=== PATIENT | female | born 1995 | race Caucasian/White ===

== ENCOUNTER 2020-08-25 13:36 | Emergency (ER) | payer OTHER ==
--- NOTE | 2020-08-25 13:48 | ER Document Report ---
ED Medical Screen (RME) - General Stated Complaint: VAGINAL BLEEDING Time Seen by Provider: 08/25/20 13:44 Information source: Patient Notes: Patient presents 8 weeks G2, P0. Patient reports lower pelvic cramping with vaginal bleeding that started today. Patient states bleeding is heavier than a menstrual cycle. I have greeted and performed a rapid initial assessment of this patient. A comprehensive ED assessment and evaluation of the patient, analysis of test results and completion of the medical decision making process will be conducted by additional ED providers. - Related Data Allergies/Adverse Reactions: Penicillins Allergy (Verified 08/25/20 13:44) Physical Exam - Vital signs Vitals: Temp Pulse Resp BP Pulse Ox 98.1 F 88 16 119/60 100 08/25/20 13:42 08/25/20 13:42 08/25/20 13:42 08/25/20 13:42 08/25/20 13:42 - Abdominal Tenderness: Tender - Lower pelvic Course - Vital Signs Vital signs: Temp Pulse Resp BP Pulse Ox 98.1 F 88 16 119/60 100 08/25/20 13:42 08/25/20 13:42 08/25/20 13:42 08/25/20 13:42 08/25/20 13:42
--- NOTE | 2020-08-25 14:29 | ER Document Report ---
ED General - General Chief Complaint: OB Problem (<20wks) Stated Complaint: VAGINAL BLEEDING Time Seen by Provider: 08/25/20 13:44 Primary Care Provider: JOVANY ROACH MD [ACTIVE STAFF] - Follow up as needed RAYMOND CLOUD MD [ACTIVE PROVISIONAL STAFF] - Follow up tomorrow (follow up in 48 hours for repeat hcg and ultrasound) - HPI Notes: 25-year-old female LMP 07/03/2020 28 weeks presents the emergency room today for lower pelvic cramping and vaginal bleeding that started today, states she is going through 1 pad an hour. Patient does not have an NO[employer]LE [employer], denies any chest pain shortness of breath. Denies any fevers or chills. Denies any trauma. Patient is unsure of her blood type. Reports her last ended in a miscarriage. Denies any nausea vomiting diarrhea, abdominal pain. Denies any rashes. Denies any Covid exposure around any Covid positive patients in the last 14 days. - Related Data Allergies/Adverse Reactions: Penicillins Allergy (Verified 08/25/20 13:44) Home Medications: nausea Past Medical History - General Information source: Patient - Social History Smoking Status: Never Smoker Chew tobacco use (# tins/day): No Frequency of alcohol use: Occasional Drug Abuse: None Family History: Reviewed & Not Pertinent Patient has homicidal ideation: No Review of Systems - Review of Systems Constitutional: No symptoms reported EENT: No symptoms reported Cardiovascular: No symptoms reported Respiratory: No symptoms reported Gastrointestinal: No symptoms reported Genitourinary: No symptoms reported Female Genitourinary: See HPI Musculoskeletal: No symptoms reported Skin: No symptoms reported Hematologic/Lymphatic: No symptoms reported Neurological/Psychological: No symptoms reported Physical Exam - Vital signs Vitals: Temp Pulse Resp BP Pulse Ox 98.1 F 88 16 119/60 100 08/25/20 13:42 08/25/20 13:42 08/25/20 13:42 08/25/20 13:42 08/25/20 13:42 - Notes Notes: MEDICATIONS: I agree with the patient medications as charted by the RN. ALLERGIES: I agree with the allergies as charted by the RN. PAST MEDICAL HISTORY/PAST SURGICAL HISTORY: Reviewed and agree as charted by RN. SOCIAL HISTORY: Reviewed and agree as charted by RN. FAMILY HISTORY: No significant familial comorbid conditions directly related to patient complaint EXAM: Reviewed vital signs as charted by RN. PHYSICAL EXAMINATION: GENERAL: Well-appearing, well-nourished and in no acute distress. HEAD: Atraumatic, normocephalic. EYES: Pupils equal round and reactive to light, extraocular movements intact, conjunctiva are normal. ENT: Nares patent, oropharynx clear without exudates. Moist mucous membranes. NECK: Normal range of motion, supple without lymphadenopathy LUNGS: Breath sounds clear to auscultation bilaterally and equal. No wheezes rales or rhonchi. HEART: Regular rate and rhythm without murmurs ABDOMEN: Soft, nontender, nondistended abdomen. No guarding, no rebound. No masses appreciated. Female : External genitalia without erythema, exudate or discharge. Vaginal vault is without discharge. Cervix is of normal color without lesion. Uterus is noted to be of normal size and nontender. No cervical motion tenderness is seen. No masses are palpated. Scant blood in the vaginal vault without clots, os closed, no adnexal tenderness or mass Musculoskeletal: Normal range of motion, no pitting or edema. No cyanosis. NEUROLOGICAL: Cranial nerves grossly intact. Normal speech, normal gait. Normal sensory, motor exams PSYCH: Normal mood, normal affect. SKIN: Warm, Dry, normal turgor, no rashes or lesions noted. Dictation was performed using [employer] voice recognition software Course - Re-evaluation Re-evalutation: 08/25/20 15:37 Afebrile vital stable no distress. Nurses notes reviewed. Patient is A-, she will require RhoGam. concern room hCG quantitative is at 63,[phone]. Obstetric ultrasound a single living intrauterine gestation with an estimated gestational age of 7 weeks 4 days which is consistent with the menstrual dating. Small subchorionic hemorrhage. Consulted with Dr. Raymond Haque, she has been on active delivery and will call me back at [phone], she did call back at [phone], she did advis ed to do a repeat hCG in 48 hours as well as ultrasound which could be done her office or in the emergency room. Advised pelvic rest, if more than 2 pad saturated in an hour to return to the emergency room after performing a Medical Screening Examination, I estimate there is LOW risk for ACUTE APPENDICITIS, BOWEL OBSTRUCTION, ACUTE CHOLECYSTITIS, PERFORATED DIVERTICULITIS, INCARCERATED HERNIA, PANCREATITIS, PELVIC INFLAMMATORY DISEASE, PERFORATED ULCER, ECTOPIC , or TUBO-OVARIAN ABSCESS, thus I consider the discharge disposition reasonable. Also, there is no evidence or peritonitis, sepsis, or toxicity. I have reevaluated this patient multiple times and no significant life threatening changes are noted. The patient and I have discussed the diagnosis and risks, and we agree with discharging home with close follow-up with the understanding that symptoms and presentations can change. We also discussed returning to the Emergency Department immediately if new or worsening symptoms occur. We have discussed the symptoms which are most concerning (e.g., bloody stool, fever, changing or worsening pain, vomiting) that necessitate immediate return. - Vital Signs Vital signs: Temp Pulse Resp BP Pulse Ox 98.1 F 88 16 119/60 100 08/25/20 13:44 08/25/20 13:42 08/25/20 13:42 08/25/20 13:42 08/25/20 13:42 - Laboratory Result Diagrams: 08/25/20 14:08 Laboratory results interpreted by me: 08/25/20 08/25/20 14:08 14:08 Beta HCG, Quant 13524.00 H Urine Blood MODERATE H Discharge - Discharge Clinical Impression: Vaginal bleeding affecting early Condition: Stable Disposition: HOME, SELF-CARE Instructions: Bleeding During Early ([facility]), Vaginal Bleeding ([facility]) Additional Instructions: You need to return to the ED or the women's health clinic in 48 hours for a recheck of your hormone level. The ultrasound is unable to see anyt ana at this time because you are too early in your . Please return if you develop severe abdominal pain, bleeding that goes through more than 2 pads for more than 2 hours, pass out, or have any other symptoms that are concerning to you. Please follow-up closely with your OBGYN regarding todays visit. Return immediately for any new or worsening symptoms. Follow up with primary care provider, call tomorrow to make followup appointment. Referrals: JOVANY ROACH MD [ACTIVE STAFF] - Follow up as needed RAYMOND LCOUD MD [ACTIVE PROVISIONAL STAFF] - Follow up tomorrow (follow up in 48 hours for repeat hcg and ultrasound)
[2020-08-25 14:52] LABS: APPEARANCE,URINE CLEAR; BILIRUBIN,URINE NEGATIVE (NEGATIVE); COLOR,URINE YELLOW; GLUCOSE, URINE NEGATIVE (NEGATIVE); KETONES,URINE NEGATIVE (NEGATIVE); LEUKOCYTE ESTERASE,URINE NEGATIVE (NEGATIVE); NITRITE,URINE NEGATIVE (NEGATIVE); PROTEIN,URINE NEGATIVE (NEGATIVE); URINE SPECIFIC GRAVITY 1.013; UROBILINOGEN,URINE NEGATIVE mg/dL (<2.0)
[2020-08-25 14:55] LABS: ABSOLUTE EOSINOPHILS # (AUTO) 0.1 10^3/uL (0.0-0.6); ABSOLUTE LYMPHOCYTES (AUTO) 1.9 10^3/uL (0.5-4.7); ABSOLUTE MONOCYTES (AUTO) 0.7 10^3/uL (0.1-1.4); ABSOLUTE NEUT (AUTO) 7.3 10^3/uL (1.7-8.2); BASOPHILS % (AUTO) 0.5 % (0-2); EOSINOPHILS % (AUTO) 0.7 % (0-6); HEMATOCRIT 36.6 % (36.0-47.0); HEMOGLOBIN 12.8 g/dL (12.0-15.5); LYMPHOCYTES % (AUTO) 18.7 % (13-45); MEAN CORPUSCULAR HEMOGLOBIN 29.6 pg (27.0-33.4); MEAN CORPUSCULAR HGB CONC 35.1 g/dL (32.0-36.0); MEAN CORPUSCULAR VOLUME 84 fl (80-97); MONOCYTES % (AUTO) 7.2 % (3-13); PLATELET COUNT 377 10^3/uL (150-450); RED BLOOD COUNT 4.33 10^6/uL (3.72-5.28); RED CELL DISTRIBUTION WIDTH 13.5 % (11.5-14.0); SEGMENTED NEUTROPHILS % (AUTO) 72.9 % (42-78); TOTAL CELLS COUNTED % (AUTO) 100 %
--- NOTE | 2020-08-25 15:42 | RADIOLOGY REPORT (SQ) ---
EXAM DESCRIPTION: U/S OB TRANSVAGINAL W/O DOP IMAGES COMPLETED DATE/TIME: 08/25/2020 3:18 pm REASON FOR STUDY: vag bleeding, cramping COMPARISON: None. TECHNIQUE: Transvaginal static and realtime grayscale images acquired of the pelvis. Additional kishor cted spectral and color Doppler images recorded. All images stored on PACs. bHCG: Not available. CLINICAL DATES: 7 weeks 4 days LIMITATIONS: None. FINDINGS: FETUS: Single Living intrauterine . ULTRASOUND EGA: 7 weeks 5 days ULTRASOUND JOSSUE: 04/08/2021 EFW: Not applicable less than 20 weeks. CRL: 1.4 cm FHR: 157 beats per minute. SURVEY: Too early to assess. AMNIOTIC FLUID: Adequate amount. PLACENTA: Not yet developed due to early gestation. SUBCHORIONIC BLEED: Yes. SIZE OF BLEED: Approximately 1.9 x 0.9 cm UTERUS: No masses. No anomalies. CERVICAL LENGTH: 2.2 cm Closed. RIGHT ADNEXA: The right ovary measures approximately 3 cm x 3 cm x 2 cm and contains a probable corpu s luteum. No adnexal free fluid. No adnexal masses. LEFT ADNEXA: The left ovary measures approximately 2 cm x 1 cm x 1 cm and is normal in appearance. No adnexal free fluid. No adnexal masses. FREE FLUID: None. OTHER: No other significant finding. IMPRESSION: Single live intrauterine gestation with an estimated gestational age of 7 weeks 4 days w hich is consistent with menstrual dating. Small subchorionic hemorrhage. EGA 7 weeks 4 days Trimester of : First trimester - 0 to 13 weeks. TECHNICAL DOCUMENTATION: JOB ID: [id number] [employer]- All Rights Reserved Reading location - IP/workstation name: [email or web address]
[2020-08-25 16:17] LABS: BACTERIA (WET MOUNT) 3+ BACTERIA SEEN; RBCS (WET MOUNT) 3+ RBCS SEEN; T.VAGINALIS (WET MOUNT) NO TRICHOMONAS SEEN; WBCS (WET MOUNT) NO WBCS SEEN; YEAST (WET MOUNT) NO YEAST SEEN
[2020-08-25 17:45] VITALS: BP 120/62
[2020-08-25 17:45] LABS: CHLAM PCR NOT DETECTED (NOT DETECT)
== END 2020-08-25 17:43 | disposition home or self-care (01) ==
LOC: ER 13:36
DX: O20.9 Hemorrhage in early pregnancy, unspecified (principal); R10.2 Pelvic and perineal pain; Z3A.08 8 weeks gestation of pregnancy; Z88.0 Allergy status to penicillin
CPT/HCPCS: 99284; 86900; 86901; 36415; 87210; 86850; 84702; 85025; 81001; 87491; 87591; 76817; J2790